=== PATIENT | female | born 2000 | race Caucasian/White ===

== ENCOUNTER 2021-03-30 08:02 | Outpatient (REF) | payer OTHER, SELFPAY ==
[2021-03-30 08:25] LABS: COVID-19 Test Positive (Negative); IDNOW Serial# 55D5AD1C
== END 2021-03-30 08:03 | disposition home or self-care (01) ==
LOC: HO.LAB 08:02
PROVIDERS: Visit Provider Internal Medicine
DX: Z20.822 Contact with and (suspected) exposure to COVID-19 (principal)
CPT/HCPCS: 87635; C9803